=== PATIENT | male | born 1975 | race Two or more races ===

== ENCOUNTER 2021-03-12 17:09 | Emergency (ER) | payer OTHER ==
[2021-03-12] MEDS: Haloperidol Lactate 5 MG/ML SDV IM ONE (17:54)
[2021-03-12 18:06] LABS: BARBITURATE SCREEN,URINE NEGATIVE (NEGATIVE); BENZODIAZEPINES SCREEN,URINE POSITIVE (NEGATIVE); METHAMPHETAMINE SCREEN, URINE POSITIVE (NEGATIVE); THC SCREEN,URINE 50 NG/ML POSITIVE (NEGATIVE)
[2021-03-12 18:07] LABS: BUPRENORPHINE SCREEN,URINE NEGATIVE (NEGATIVE)
[2021-03-12 18:21] LABS: CHLORIDE,CL 101 mmol/L (98-107); SODIUM,NA 138 mmol/L (136-145)
[2021-03-12 18:22] LABS: ACETAMINOPHEN 0 ug/ml (10-30); ANION GAP 12.9 mmol/L (5-15)
--- NOTE | 2021-03-12 18:28 | EDM.PDOCBH ---
ED HPI GENERAL MEDICAL PROBLEM - General Chief Complaint: Behavioral/Psych Stated Complaint: acting strange Time Seen by Provider: 03/12/21 17:15 Source of Information: Reports: Patient, Police - History of Present Illness INITIAL COMMENTS - FREE TEXT/NARRATIVE: Patient is brought to the emergency department today from the local gas station/bus stop by the Police Department with concerns of acting strangely. According to the patient he lives in [place]. He is currently traveling across the country in search of work. He has been in [place] the last couple of days after a bus trip to [place]. He spent the rest of his money on a bus ticket to [facility] to look further for a job. Prior to purchasing the bus ticket he spent $100 on methamphetamine. He does have a history of some type of thought or mood disorder according the patient. He was on olanzapine for an extended period of time. He typically gets what he states is a Haldol injection at last for 30 days once a month. He was seen in some hospital in [place] due to his thought disorder he is unsure of the name where or when it happened. He was given an injection Haldol at that time and then discharged to get on the bus. Today when he was on the bus heading to [facility] looking for work the patient became quite paranoid. He could not stand loss any longer. He therefore exited the bus on his own at the stop here in [place]. He started to act strangely so the police were summoned. Upon arrival the patient has no physical complaints. He just relates that he is very paranoid. He denies any suicidal or homicidal ideation. He has no hallucinations or delusions. He is quite fixated on methodist concerns and is reading through liable as I am talking to them. He denies taking anything else in an attempt to get high or kill himself. He is unsure of his chronic diagnosis is. He just feels paranoid. - Related Data Allergies Allergy/AdvReac Type Severity Reaction Status Date / Time risperidone [From Risperdal] Allergy Other Verified 03/13/21 01:16 Home Meds: Home Meds . [Unable to Verify Home Med List] 03/12/21 [History] Social & Family History - Tobacco Use Tobacco Use Status *Q: Unknown Ever Used Tobacco ED ROS GENERAL - Review of Systems Review Of Systems: Comprehensive ROS is negative, except as noted in HPI. ED EXAM, BEHAVIORAL HEALTH - Physical Exam Exam: See Below Text/Narrative:: This patient is alert appropriate interactive cooperative but somewhat agitated. He is pacing about the room. He is holding his head in his hands. He is speaking quite rapidly. His hygiene is unremarkable. He clearly has flight of ideas tangential thought. No hallucinations or delusions. He has rambling tangential thoughts. Exam Limited By: No Limitations General Appearance: Alert, WD/WN, Anxious Eye Exam: Bilateral Eye: EOMI Ears: Normal External Exam Nose: Normal Inspection Throat/Mouth: Normal Inspection, Normal Lips Head: Atraumatic, Normocephalic Neck: Normal Inspection, Supple, Non-Tender Respiratory/Chest: No Respiratory Distress, Lungs Clear, No Accessory Muscle Use, Chest Non-Tender Cardiovascular: Normal Peripheral Pulses, Regular Rate, Rhythm GI/Abdominal: Normal Bowel Sounds, Soft Extremities: Normal Inspection Neurological: Alert, CN II-XII Intact, Normal Gait, No Motor/Sensory Deficits, Oriented x 3 Psychiatric: Alert, Restless, Agitated, Flight of Ideas, Tangential Thoughts, Pressured Speech, Paranoid Thoughts. No: Disoriented, Inattentive, Poor Eye Contact, Withdrawn, Homicidal Thoughts, Phobic, Presybeterian Delusions (No methodist delusions although he is quite fixated on his Bible and quoting multiple Bible verses), Suicidal Plan, Suicidal Thoughts, Auditory Hallucinations, Visual Hallucinations, Grandiose Thoughts, Threatening Behavior Skin Exam: Warm, Dry, Intact, Normal color, No rash COURSE, BEHAVIORAL HEALTH COMP - Course Vital Signs: Last Vital Signs Temp 97.8 F 03/12/21 17:20 Pulse 105 H 03/12/21 17:20 Resp 18 03/12/21 17:20 BP 141/91 H 03/12/21 17:20 Pulse Ox 97 03/12/21 17:20 Orders, Labs, Meds: Laboratory Tests 03/12/21 03/12/21 03/12/21 Range/Units 17:45 17:45 17:45 WBC 10.4 H (4.0-10.0) x10^3/uL RBC 5.51 (4.5-6.0) x10^6/uL Hgb 17.1 (14.0-18.0) g/dL Hct 49.5 (40.0-52.0) % MCV 89.8 (78.0-93.0) fL MCH 31.0 (26.0-32.0) pg MCHC 34.5 (32.0-36.0) g/dL RDW Coeff of Reuben 13.5 (10.0-15.0) % Plt Count 253 (130-400) x10^3/uL Immature Gran % (Auto) 0.10 (0.00-0.43) % Neut % (Auto) 66.6 (50.0-80.0) % Lymph % (Auto) 24.3 L (25.0-50.0) % Bucks % (Auto) 7.0 (2.0-11.0) % Eos % (Auto) 1.7 (0.0-4.0) % Baso % (Auto) 0.3 (0.2-1.2) % Neut # (Auto) 7.0 (1.8-7.7) x10^3/uL Lymph # (Auto) 2.5 (1.0-4.8) x10^3/uL Bucks # (Auto) 0.7 (0.0-0.8) x10^3/uL Eos # (Auto) 0.2 (0.0-0.5) x10^3/uL Baso # (Auto) 0.0 (0.0-0.2) x10^3/uL Immature Gran # (Auto) 0.01 (0.00-0.07) x10^3/uL Sodium 138 (136-145) mmol/L Potassium 3.9 (3.5-5.1) mmol/L Chloride 101 (98-107) mmol/L Carbon Dioxide 28 (21-32) mmol/L Anion Gap 12.9 (5-15) mmol/L BUN 13 (7-18) mg/dL Creatinine 1.4 H (0.70-1.30) mg/dL Est Cr Clr Drug Dosing TNP Estimated GFR (MDRD) 55 Glucose 98 (70-99) mg/dL Calcium 9.0 (8.5-10.1) mg/dL Corrected Calcium 8.9 (8.5-10.1) mg/dL Total Bilirubin 0.9 (0.2-1.0) mg/dL AST 47 H (15-37) U/L ALT 53 (16-63) U/L Alkaline Phosphatase 92 (46-116) U/L Total Protein 7.3 (6.4-8.2) g/dL Albumin 4.1 (3.4-5.0) g/dL Globulin 3.2 Albumin/Globulin Ratio 1.28 TSH, Ultra Sensitive 1.692 (0.358-3.74) uIU/mL Urine Color (YELLOW) Urine Appearance (CLEAR) Urine pH (5.0-8.0) Ur Specific Rough And Ready Urine Protein (NEGATIVE) mg/dL Urine Glucose (UA) (NEGATIVE) mg/dL Urine Ketones (NEGATIVE) mg/dL Urine Occult Blood (NEGATIVE) Urine Nitrite (NEGATIVE) Urine Bilirubin (NEGATIVE) Urine Urobilinogen (0.2) EU/dL Ur Leukocyte Esterase (NEGATIVE) Urine RBC (NOT SEEN) /HPF Urine WBC (NOT SEEN) /HPF Ur Squamous Epith Cells (NOT SEEN) /HPF Amorphous Sediment Urine Bacteria (NOT SEEN) /HPF Urine Mucus (NOT SEEN) /LPF Salicylates 3.4 (2.8-20(Therapeutic)) mg/dL Urine Opiates Screen (NEGATIVE) Ur Buprenorphine Scrn (NEGATIVE) Ur Oxycodone Screen (NEGATIVE) Urine Methadone Screen (NEGATIVE) Acetaminophen 0 L (10-30) ug/ml Ur Barbiturates Screen (NEGATIVE) Ur Phencyclidine Scrn (NEGATIVE) Ur Amphetamine Screen (NEGATIVE) U Methamphetamines Scrn (NEGATIVE) Urine MDMA Screen (NEGATIVE) U Benzodiazepines Scrn (NEGATIVE) U Cocaine Metab Screen (NEGATIVE) U Marijuana (THC) Screen (NEGATIVE) Ethyl Alcohol < 3 (0-3) mg/dL SARS CoV-2 RNA Rapid JANET (NEGATIVE) 03/12/21 03/12/21 03/12/21 Range/Units 17:48 17:48 17:55 WBC (4.0-10.0) x10^3/uL RBC (4.5-6.0) x10^6/uL Hgb (14.0-18.0) g/dL Hct (40.0-52.0) % MCV (78.0-93.0) fL MCH (26.0-32.0) pg MCHC (32.0-36.0) g/dL RDW Coeff of Reuben (10.0-15.0) % Plt Count (130-400) x10^3/uL Immature Gran % (Auto) (0.00-0.43) % Neut % (Auto) (50.0-80.0) % Lymph % (Auto) (25.0-50.0) % Bucks % (Auto) (2.0-11.0) % Eos % (Auto) (0.0-4.0) % Baso % (Auto) (0.2-1.2) % Neut # (Auto) (1.8-7.7) x10^3/uL Lymph # (Auto) (1.0-4.8) x10^3/uL Bucks # (Auto) (0.0-0.8) x10^3/uL Eos # (Auto) (0.0-0.5) x10^3/uL Baso # (Auto) (0.0-0.2) x10^3/uL Immature Gran # (Auto) (0.00-0.07) x10^3/uL Sodium (136-145) mmol/L Potassium (3.5-5.1) mmol/L Chloride (98-107) mmol/L Carbon Dioxide (21-32) mmol/L Anion Gap (5-15) mmol/L BUN (7-18) mg/dL Creatinine (0.70-1.30) mg/dL Est Cr Clr Drug Dosing Estimated GFR (MDRD) Glucose (70-99) mg/dL Calcium (8.5-10.1) mg/dL Corrected Calcium (8.5-10.1) mg/dL Total Bilirubin (0.2-1.0) mg/dL AST (15-37) U/L ALT (16-63) U/L Alkaline Phosphatase (46-116) U/L Total Protein (6.4-8.2) g/dL Albumin (3.4-5.0) g/dL Globulin Albumin/Globulin Ratio TSH, Ultra Sensitive (0.358-3.74) uIU/mL Urine Color Arabella H (YELLOW) Urine Appearance Slightly cloudy H (CLEAR) Urine pH 6.0 (5.0-8.0) Ur Specific Rough And Ready 1.025 Urine Protein 100 H (NEGATIVE) mg/dL Urine Glucose (UA) Negative (NEGATIVE) mg/dL Urine Ketones 40 H (NEGATIVE) mg/dL Urine Occult Blood Negative (NEGATIVE) Urine Nitrite Negative (NEGATIVE) Urine Bilirubin Moderate H (NEGATIVE) Urine Urobilinogen 1.0 (0.2) EU/dL Ur Leukocyte Esterase Negative (NEGATIVE) Urine RBC 0-5 (NOT SEEN) /HPF Urine WBC Not seen (NOT SEEN) /HPF Ur Squamous Epith Cells Not seen (NOT SEEN) /HPF Amorphous Sediment Rare Urine Bacteria Rare (NOT SEEN) /HPF Urine Mucus Many H (NOT SEEN) /LPF Salicylates (2.8-20(Therapeutic)) mg/dL Urine Opiates Screen Negative (NEGATIVE) Ur Buprenorphine Scrn Negative (NEGATIVE) Ur Oxycodone Screen Negative (NEGATIVE) Urine Methadone Screen Negative (NEGATIVE) Acetaminophen (10-30) ug/ml Ur Barbiturates Screen Negative (NEGATIVE) Ur Phencyclidine Scrn Negative (NEGATIVE) Ur Amphetamine Screen Positive H (NEGATIVE) U Methamphetamines Scrn Positive H (NEGATIVE) Urine MDMA Screen Negative (NEGATIVE) U Benzodiazepines Scrn Positive H (NEGATIVE) U Cocaine Metab Screen Negative (NEGATIVE) U Marijuana (THC) Screen Positive H (NEGATIVE) Ethyl Alcohol (0-3) mg/dL SARS CoV-2 RNA Rapid JANET Negative (NEGATIVE) Medications Discontinued Medications Generic Name Dose Route Start Last Admin Trade Name Freq PRN Reason Stop Dose Admin Haloperidol Lactate 5 mg 03/12/21 17:37 03/12/21 17:54 Haloperidol Lactate 5 Mg/Ml Sdv IM 03/12/21 17:38 5 mg STAT ONE Administration Olanzapine 5 mg 03/12/21 18:26 03/12/21 18:37 Olanzapine 5 Mg Tab PO 03/12/21 18:27 5 mg NOW STA Administration Re-Assessment/Re-Exam: Unremarkable CBC and CMP. Other than a mild elevation of his creatinine 1.4. His urinalysis is noninfectious appearing. Acetaminophen and salicylate negative. Amphetamine methamphetamine benzodiazepines and THC positive in his urine drug screen. The patient was given 5 mg of Haldol IM. Patient did seem to calm quite a bit after the Haldol. He did visit with the screener Derek from the [facility] [place]. As the patient is a chronic patient and no risk to himself at this time no placement needed per the screener. Again I discussed with the patient he not suicidal or homicidal when I talked with him at length. He will be discharged with the police at this time and a hotel room was secured for him by the police and he will get back on the bus tomorrow for [place]. I will start him back on zyprexa 10mg daily until he can establish with a PCP in [place]. He is comfortable with this plan and his questions answered. 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 Which is being exacerbated by the substance abuse of the methamphetamine. Hopefully we can let this run its course and get him back on some type of antipsychotic like Zyprexa and he can follow-up with his primary care. Once he establishes it in [place] Departure - Departure Time of Disposition: 18:22 Disposition: Home, Self-Care 01 Clinical Impression: Paranoia - Discharge Information Referrals: PCP,Not In Area [Primary Care Provider] - Forms: ED Department Discharge Additional Instructions: [facility] will [facility] you saturday. See them ZOILA. The police will attempt to assist tonight with plan until we can get you on the bus to [place]. First dose of Olanzapine started in the ED. And prescription given to the patient for daily 10mg of Olanzapine as well to help with the paranoid thoughts. Recheck with PCP in one week. Sooner if any other concerns or problems.
[2021-03-12] MEDS: OLANZapine 5 MG Tab PO STA (18:37)
== END 2021-03-12 18:40 | disposition home or self-care (01) ==
LOC: VM.ED 17:09
DX: F22 Delusional disorders (principal); Z88.8 Allergy status to other drugs, medicaments and biological substances; Z20.822 Contact with and (suspected) exposure to COVID-19
CPT/HCPCS: 36415; 80053; 80143; 80179; 80305-QW; 80307; 81001; 84443; 85025; 96372; 99284; 99285; A9270-GY; J1630; U0002

== ENCOUNTER 2021-03-12 20:25 | Emergency (ER) | payer OTHER ==
--- NOTE | 2021-03-12 20:34 | EDM.PDOCBH ---
ED HPI GENERAL MEDICAL PROBLEM - General Stated Complaint: paranoid suicidal Time Seen by Provider: 03/12/21 20:33 Source of Information: Reports: Patient, Police History Limitations: Reports: No Limitations - History of Present Illness INITIAL COMMENTS - FREE TEXT/NARRATIVE: This patient is brought to the emergency department for the second time today with concerns of acting strangely as well as suicidal thoughts which is new from his previous visit. Please see my note from just a couple of hours ago. Patient clearly has some underlying schizo affective disorder. Initially when he was seen he denied any homicidal or suicidal ideation. He was discharged with the police to stay at the hotel until he could get back on the bus to where he was going [facility]. Since he has been back in the hotel for just about 1/2-hour 45 minutes or so this patient has become increasingly paranoid. He contacted 911 on his own because if he continues to live in society he is going to jump in front of a car to kill himself or do anything in an attempt to kill himself. He has not taken anything or done anything prior to contacting 911. He apologizes and is remorseful but he does not feel safe out in the general public. He has no other physical complaints at this time. - Related Data Allergies Allergy/AdvReac Type Severity Reaction Status Date / Time risperidone [From Risperdal] Allergy Other Verified 03/13/21 01:16 Home Meds: Home Meds . [Unable to Verify Home Med List] 03/12/21 [History] ED ROS GENERAL - Review of Systems Review Of Systems: Comprehensive ROS is negative, except as noted in HPI. ED EXAM, BEHAVIORAL HEALTH - Physical Exam Exam: See Below Text/Narrative:: The patient is somewhat more agitated than he was previously. He is now stating that he is suicidal. He is not homicidal. He still has flight of ideas. He has pressured speech. He is not confused. He is cooperative. Exam Limited By: No Limitations General Appearance: Alert, WD/WN, Anxious Respiratory/Chest: No Respiratory Distress Cardiovascular: Normal Peripheral Pulses, Regular Rate, Rhythm GI/Abdominal: Normal Bowel Sounds Neurological: Alert, Oriented x 3 Psychiatric: Alert, Oriented, Restless, Agitated, Tangential Thoughts, Auditory Hallucinations (He does admit that this time that he has having voices in his head telling him that he needs to kill himself because he cannot be in the public eye.), Pressured Speech, Paranoid Thoughts. No: Visual Hallucinations, Grandiose Thoughts, Threatening Behavior Skin Exam: Warm, Dry, Intact, Normal color, No rash COURSE, BEHAVIORAL HEALTH COMP - Course Vital Signs: Last Vital Signs Temp 98.1 F 03/12/21 20:30 Pulse 107 H 03/12/21 20:30 Resp 16 03/12/21 20:30 BP 140/96 H 03/12/21 20:30 Pulse Ox 98 03/12/21 20:30 Re-Assessment/Re-Exam: The patient was given another dose of Haldol 5 mg IM. I spoke with the [facility] service [facility] once again and at this time as he is clearly show that he cannot be out in public and now he is suicidal he will be transported to the [facility] for further care and evaluation. Departure - Departure Time of Disposition: 22:08 Disposition: DC/Tfer to Psych Hosp/Unit 65 Clinical Impression: Suicidal ideation, Paranoid behavior - Discharge Information Referrals: PCP,Not In Area [Primary Care Provider] -
== END 2021-03-12 21:40 ==
LOC: VM.ED 20:25
DX: R45.851 Suicidal ideations (principal); F22 Delusional disorders; Z88.8 Allergy status to other drugs, medicaments and biological substances
CPT/HCPCS: 99283; 99285